=== PATIENT | female | born 1975 ===

== ENCOUNTER 2018-11-05 16:37 | Emergency (ER) | payer MEDICAID ==
[~2018-11-05] VITALS: Ht 165.1 cm; Wt 103.4 kg
[2018-11-05 16:47] VITALS: Ht 165.1 cm; Wt 103.4 kg
[2018-11-05 17:51] LABS: CALCIUM 8.9 mg/dL (8.5-10.1); CARBON DIOXIDE 26.3 mmol/L (21-32); CHLORIDE SERUM 105 mmol/L (98-107); CREATININE SERUM 0.8 mg/dL (0.6-1.0); GFR1 > 60 mL/min; GLUCOSE SERUM 198 mg/dL (74-106); POTASSIUM SERUM 3.9 mmol/L (3.5-5.1); SODIUM SERUM 142 mmol/L (136-145)
[2018-11-05 18:04] LABS: BASOPHIL % 0.4 % (0-2); PLATELET COUNT 267 x10^3mcL (130-400); RED CELL DISTRIBUTION WIDTH 15.8 % (11.5-14.5)
[2018-11-05 18:07] LABS: ALBUMIN 3.5 g/dL (3.4-5.0); ALKALINE PHOSPHATASE 125 U/L (46-116); ALT/SGPT 57 U/L (14-59); BILIRUBIN TOTAL 0.4 mg/dL (0.20-1.00); LIPASE 164 IU/L (73-393); TOTAL PROTEIN, SERUM 7.8 g/dL (6.4-8.2)
[2018-11-05 18:07] LABS: UA SPECIFIC GRAVITY >=1.030 (1.005-1.035); microscopic required? YES; urine erythrocyte NEGATIVE (NEGATIVE)
[2018-11-05 18:23] LABS: AST/SGOT 47 U/L (15-37)
[2018-11-05 20:45] VITALS: BP 107/71
== END 2018-11-05 20:45 | disposition home or self-care (01) ==
LOC: ED 16:37
PROVIDERS: Emergency Medicine
DX: R10.11 Right upper quadrant pain (principal); E11.9 Type 2 diabetes mellitus without complications
CPT/HCPCS: J1885; J2270; J2405; Q0092